=== PATIENT | female | born 1975 | race Caucasian/White ===

== ENCOUNTER 2024-02-28 23:49 | Inpatient (IN) | payer OTHER, SELFPAY ==
[2024-02-28 17:04] VITALS: BP 176/103
[2024-02-28 17:22] LABS: % Basophils 0.4 % (0-2); % Eosinophils 1.1 % (0-6); % Immature Granulocytes 0.4 % (0-0.5); % Lymphocytes 13.9 % (20.5-51.1); % Monocytes 8.4 % (1.7-9.3); % Neutrophils 75.8 % (42.2-75.2); Absolute Basophils 0.1 10^3/uL (0-0.2); Absolute Eosinophils 0.1 10^3/uL (0-0.7); Absolute Immature Granulocytes 0.1 10^3/uL (0-0.05); Absolute Lymphocytes 1.6 10^3/uL (1.2-3.4); Absolute Monocytes 0.9 10^3/uL (0.1-0.6); Absolute Neutrophils 8.5 10^3/uL (1.4-6.5); Hematocrit 30.7 % (37.0-47.0); Hemoglobin 9.1 g/dL (12.0-16.0); Mean Corp Hgb Conc. 29.6 g/dL (33.0-37.0); Mean Corpuscular Hgb 21.2 pg (27.0-31.0); Mean Corpuscular Volume 71.4 fL (81.0-99.0); Nucleated Red Blood Cells % 0 %; Platelet Count 316 10^3/uL (130-400); Red Cell Dist. Width 19.1 % (11.5-14.5); White Blood Cell Count 11.3 10^3/uL (4.8-10.8)
[2024-02-28 17:45] LABS: ALT (SGPT) 26 U/L (0-35); AST (SGOT) 30 U/L (14-36); Albumin 4.1 g/dl (3.5-5.0); Alkaline Phosphatase 100 U/L (38-126); Blood Urea Nitrogen 4 mg/dl (7-17); Carbon Dioxide 18 mmol/L (22-30); Chloride 103 mmol/L (98-107); Glucose 110 mg/dl (70-99); Lipase 40 U/L (23-300); Potassium 4.3 mmol/L (3.5-5.1); Sodium 136 mmol/L (135-145); Total Bilirubin 0.4 mg/dl (0.2-1.3); Total Protein 7.4 g/dl (6.3-8.2); eGFR > 60.00
--- NOTE | 2024-02-28 20:51 | ED.GENMED ---
History of Present Illness
General
Chief Complaint: Abdominal Pain
Source: patient
Exam Limitations: none
Time Seen by Provider: 02/28/24 20:00
Nursing documentation reviewed up to this point in time: agreed with
History of Present Illness
History of Present Illness:
pt is a 48 y/o F with no sig pmh
here with intermittent R lower abd pain x 1 week, but much worse the past 4 days with constipation; pt says she normally moves bowels regularly and has fairly soft stool but has had trouble the pat 4 days and barely mves her bowels; when she tries
to have BM or urinate, she gets a really bad pain in her R lower abdomen and across her lower abdomen
she has not had fever, chills, nausea, vomiting, dysuria, hematuria
pt tried doculax without relief really
she has not had any bowel altering surgery
pt has pain within her vaginal region like a contraction when she tries to move bowels or at the end of urination
Past History
Past History
ED Past Medical History: None
ED Past Surgical History: Cholecystectomy
Social History
Tobacco: Non-smoker
Alcohol: None
Drug: None
Personal:
Living: with family
Employment: Employed
Phy Exam
Physical Exam
Physical Exam:
GENERAL: Alert , in no apparent distress
EYE: pupils equal and reactive
NECK: Supple
ENT: o/p clr, mmm.
CARDIAC: Regular rate and rhythm .
LUNGS: Clear breath sounds bilaterally, no acute respiratory distress, no wheezes/rales/rhonchi
ABDOMEN: Soft, moderate to severe lower abd tnednerss, specifically suprapubic and RLQ; mild voluntary guarding,no cvat, normal bowel sounds
NEUROLOGICAL: Alert and oriented, no focal neuro deficits
SKIN: Warm and dry, skin intact.
MUSCULOSKELETAL: No edema, well perfused.
PSYCH: Normal and appropriate interaction.
Course
Orders/Labs/Results
Orders:
Orders
02/28/24 17:10
Electrocardiogram (*1) Urgent
Reason for Study: Abdominal Pain
EKG- Treatment ONCE
02/28/24 17:14
Complete Blood Count/With Diff Urgent
Comprehensive Metabolic Panel Urgent
HCG, Serum Qualitative Screen Urgent
Comment: ADDON
Lipase Urgent
02/28/24 20:48
Add On- LAB Urgent
Tests Added?: hcg serum qual
CT Abd/Pel (IV only)-DH only Urgent
Comment:
Reason For Exam: severe lower abd pain, constipation x 1 week
Ketorolac [Toradol] 30 mg IV NOW STA
02/28/24 21:30
Urinalysis Reflex To Culture Urgent
Date Specimen was Collected: 02/28/24
Time Specimen was Collected: 21:27
Urine Microscopic Reflex Cult Urgent
Urine Culture Urgent
CANDI Source: U
Specimen Description:
Date Specimen was Collected: 02/28/24
Time Specimen was Collected: 21:27
02/28/24 23:14
Piperacillin/Tazo 3.375 Gram [Zosyn] 3.375 gram in 50 ml IV NOW
02/28/24 23:35
Admit/Transfer Patient As Directed
Co-Sign Provider:
Level of Care: Inpatient admission
Assign to:: Medical/Surgical
Physician / Group: cathleen
Diagnosis: acute diverticulitis
Reason for Hospitalization: acute diverticulitis
Expected length of stay greater than two midnights?: Yes
ELOS- Estimated Length of Stay in days: 2
I certify the patient meets the requirements for IP care: Yes
Code Status As Directed
Resuscitation Status: Full Code
PRN Pain Medication Management As Directed
May give lesser potent ordered pain med per pt: Yes
preference::
Protocol:: Medication orders for pain may be administered in a
manner that supports deferring to patient preference
when the pt is:
- Requesting an ordered lesser potent pain medication.
Least to most potent pain medications are defined
as: acetaminophen < NSAID < tramadol < opioids
(morphine, oxycodone, hydromorphone).
- Requesting a lesser dose of the same medication IF
ORDERED.
- Requesting a less intrusive route of administration
if both routes are prescribed by the provider (PO <
IV).
Abnormal Lab Results
02/28/24 02/28/24
17:14 21:30
WBC 11.3 H 10^3/uL
(4.8-10.8)
Hgb 9.1 L g/dL
(12.0-16.0)
Hct 30.7 L %
(37.0-47.0)
MCV 71.4 L fL
(81.0-99.0)
MCH 21.2 L pg
(27.0-31.0)
MCHC 29.6 L g/dL
(33.0-37.0)
RDW 19.1 H %
(11.5-14.5)
Abs Immat Gran (auto) 0.1 H 10^3/uL
(0-0.05)
Absolute Neuts (auto) 8.5 H 10^3/uL
(1.4-6.5)
Absolute Monos (auto) 0.9 H 10^3/uL
(0.1-0.6)
Neutrophils % 75.8 H %
(42.2-75.2)
Lymphocytes % 13.9 L %
(20.5-51.1)
Carbon Dioxide 18 L mmol/L
(22-30)
BUN 4 L mg/dl
(7-17)
Glucose 110 H mg/dl
(70-99)
Urine Ketones 3+ A
(Negative)
Ur Occult Blood Reflex 2+ A
(Negative)
Leukocyte Esterase Rfl 2+ A
(Negative)
Urine WBC (Reflex) 26-30 A /HPF
(0-5)
Urine Bacteria (Reflex) Moderate A
(Negative)
02/28/24 17:14
02/28/24 17:14
Vital Signs
Initial and Last Documented VS:
Initial Vital Signs
Temp Pulse Resp BP Pulse Ox
97.8 F 116 20 176/103 100
02/28/24 17:04 02/28/24 17:04 02/28/24 17:04 02/28/24 17:04 02/28/24 17:04
Last Documented Vital Signs
Temp Pulse Resp BP Pulse Ox
99.0 F 89 16 124/78 98
02/28/24 23:14 02/28/24 23:14 02/28/24 23:14 02/28/24 23:14 02/28/24 23:14
MDM/Problems Addressed
Differential Diagnosis Includes:
divertc, cystitis, uti
MDM/Problems Addressed:
48 y/o F healthy
4-5 days RLQ/lower abd pain, no fever
no h/o previously of divertic but strong family history
moderate Lower abd tendneress, guarding
wbc 11.[address] shows diverticulitis with extesnive stranding and edema along sigmoid with small foci of extraluminal gas c/w microperf
stable vitals
zosyn,
colorectal dr. morales aware
*Critical Care Note
Total Time (30-74mins, 75-104mins- exclusive of procedures): Not Applicable
ED Attending Note
-
Portions of this chart may have been created with voice recognition software.� Occasional wrong word or��sound alike� substitutions may have occurred due to the inherent limitations of voice recognition software.
Discharge Plan
Departure
Patient Disposition: Admit
Date of Disposition: 02/28/24
Time of Disposition: 23:12
Admit to: Med/Surg
Presentation/result/management discussed w/ accepting MD/DO: Hospitalist
Condition: Fair
Covid-19: Not Applicable
Discharge Problem:
Perforated diverticulum
Interventions
Interventions:
*Risk Screen - Suicide Last Done: 02/28/24 17:04
*General Assessment Last Done: 02/28/24 17:04
*Neglect/Abuse Screening Last Done: 02/28/24 17:04
ED- Fall Risk Assessment Last Done: 02/28/24 23:18
*ED COVID-19 Vaccine History Last Done: 02/28/24 23:18
LG-Hbjqpe-Rvtkknnliq Assessment Last Done: 02/28/24 23:18
[2024-02-28] MEDS: TORADOL 30 MG IV (21:29)
[2024-02-28 21:30] LABS: HCG, Serum Qualitative Screen Negative
[2024-02-28 21:46] LABS: Urine Albumin Negative (Neg - Trace); Urine Bilirubin Negative (Negative); Urine Character Slightly Cloudy (Clear); Urine Color Yellow; Urine Glucose Negative (Negative); Urine Ketone 3+ (Negative); Urine Leukocyte 2+ (Negative); Urine Nitrite Negative (Negative); Urine Occult Blood 2+ (Negative); Urine Urobilinogen Negative (Neg - 1+)
[2024-02-28 21:47] VITALS: BMI 28.2
[2024-02-28 21:53] VITALS: BP 137/83
[2024-02-28 22:53] LABS: Urine Red Blood Cell 0-2 /HPF (0-2); Urine Squamous Cell >30 /LPF (Few); Urine White Cell 26-30 /HPF (0-5)
[2024-02-28 22:54] LABS: Urine Bacteria Moderate (Negative)
[2024-02-28 23:14] VITALS: BP 124/78
[2024-02-28] MEDS: ZOSYN 50 IV (23:22)
--- NOTE | 2024-02-28 23:37 | HPS.HSE ---
Family Physician
-
Family Physician: MARGY Perez
Chief Complaint
-
abdominal pain
History of Present Illness
48-year-old female without past medical history presenting with intermittent right lower quadrant abdominal pain for 1 week significantly worse over the past 4 days. Denies constipation or diarrhea. When she tries to have bowel movement or urinate
she has really bad pain in her right lower abdomen across her lower abdomen. She denies fevers or chills, nausea or vomiting, urinary symptoms. She tried Dulcolax without any relief today. She has pain in her vaginal region which she feels like a
contraction.
She smokes half a pack of cigarettes a day.
He drinks 3-4 drinks of alcohol per day
Medical History
Past Medical History
Past Medical History: Reports None
Past Surgical History: Reports Cholecystectomy
Social History
Tobacco: Smoker
Alcohol: Daily
Drug: None
Family History
Family History: Not pertinent
Allergies / Home Medications
Allergies reflects when Allergies were last updated in [facility].
Home Medications with original date entered in [facility]
Allergy/Medication List:
Allergies
Allergy/AdvReac Type Severity Reaction Status Date / Time
codeine Allergy Unknown Verified 02/28/24 17:09
latex Allergy Rash Verified 02/28/24 17:09
morphine Allergy Unknown Verified 02/28/24 17:09
Home Medications
magnesium hydroxide 600 mg chewable tablet (Dulcolax (magnesium hydroxide)) 1,800 mg PO DAILYPRN PRN constipation 02/28/24
Review of Systems
-
History Source: Patient
A 12 point ROS was completed and negative except as noted: Yes
Constitutional: Reports No Symptoms
EENT: Reports No Symptoms
Respiratory: Reports No Symptoms
Cardiac: Reports No Symptoms
Abdomen/GI: Reports See HPI
: Reports No Symptoms
Musculoskeletal: Reports No Symptoms
Skin: Reports No Symptoms
Neurological: Reports No Symptoms
Endocrine: Reports No Symptoms
Hematologic/Lymphatic: Reports No Symptoms
Psych: Reports No Symptoms
Physical Exam
Vital Signs
Vital Signs
Temp Pulse Resp BP Pulse Ox
99.0 F 89 16 124/78 98
02/28/24 23:14 02/28/24 23:14 02/28/24 23:14 02/28/24 23:14 02/28/24 23:14
Physical Exam
General: Well Developed, Well Nourished and No Apparent Distress
HEENT: NormoCephalic, Moist mucous membranes and Atraumatic
Respiratory: Clear
Cardiac: S1/S2 and Regular Rhythm; No Murmur or Rub
GI: Soft, Non Distended, Normal Bowel Sounds and Tender (LLQ and RLQ, guarding ); No Organomegaly
Rectal: Deferred by Provider
Musculoskeletal: No Clubbing, No Cyanosis and No Edema
Skin: No Rash
Neuro: Nonfocal/grossly intact
Laboratory Results
-
02/28/24 17:14
02/28/24 17:14
Laboratory Results
Total Bilirubin 0.4 mg/dl (0.2-1.3) 02/28/24 17:14
AST 30 U/L (14-36) 02/28/24 17:14
ALT 26 U/L (0-35) 02/28/24 17:14
Alkaline Phosphatase 100 U/L (38-126) 02/28/24 17:14
Lipase 40 U/L (23-300) 02/28/24 17:14
Data Reviewed
-
Lab Data: Labs Reviewed by me
Old Records: Reviewed
Impression/Plan
-
IMPRESSION:
PLAN:
# Sepsis (leukocytosis, tachycardia ) secondary to acute sigmoid diverticulitis with microperforation/developing phlegmon
-As per CT scan abdomen pelvis
-N.p.o.
-IV fluids
-Zosyn
-Colorectal surgery consulted
-Zofran, Toradol, Dilaudid
# Moderate alcohol use
-Monitor for withdrawal
# Active smoker
-Nicotine patch
History of cholecystectomy
Full code
DVT prophylaxis�SCDs
N.p.o.
--- NOTE | 2024-02-29 01:30 | PTCARENOTE ---
Pt aaox3 admitted to room 2135 from ED, able to make needs known. IVF's started and IV abx administered as per order. Pt oriented to room and call light, plan of care ongoing.
[2024-02-29] MEDS: PROTONIX 40 MG PO (01:53)
[2024-02-29] MEDS: TYLENOL 650 MG PO (01:54)
[2024-02-29] MEDS: NSS 1000 IV ×3 (01:54→22:47)
[2024-02-29] MEDS: ZOSYN 50 IV ×4 (01:54→23:47)
[2024-02-29 02:02] VITALS: BP 140/86
[2024-02-29 02:04] VITALS: BMI 27.7
[2024-02-29 07:18] LABS: % Basophils 0.6 % (0-2); % Eosinophils 2.5 % (0-6); % Immature Granulocytes 0.6 % (0-0.5); % Lymphocytes 16.1 % (20.5-51.1); % Monocytes 8.8 % (1.7-9.3); % Neutrophils 71.4 % (42.2-75.2); Absolute Eosinophils 0.2 10^3/uL (0-0.7); Absolute Lymphocytes 1.2 10^3/uL (1.2-3.4); Absolute Monocytes 0.6 10^3/uL (0.1-0.6); Absolute Neutrophils 5.1 10^3/uL (1.4-6.5); Hematocrit 26.6 % (37.0-47.0); Mean Corp Hgb Conc. 30.1 g/dL (33.0-37.0); Mean Corpuscular Volume 73.1 fL (81.0-99.0); Mean Platelet Volume 9.1 fL (7.4-10.4); Nucleated Red Blood Cells % 0 %; Platelet Count 299 10^3/uL (130-400); Red Blood Cell Count 3.64 10^6/uL (4.20-5.40); White Blood Cell Count 7.2 10^3/uL (4.8-10.8)
[2024-02-29 07:37] LABS: ALT (SGPT) 22 U/L (0-35); AST (SGOT) 21 U/L (14-36); Albumin 3.3 g/dl (3.5-5.0); Alkaline Phosphatase 77 U/L (38-126); Blood Urea Nitrogen 5 mg/dl (7-17); Calcium 8.2 mg/dl (8.4-10.2); Carbon Dioxide 21 mmol/L (22-30); Chloride 105 mmol/L (98-107); Estimated Creatinine Clearance 93 ml/min; Glucose 86 mg/dl (70-99); Potassium 3.8 mmol/L (3.5-5.1); Sodium 136 mmol/L (135-145); Total Bilirubin 0.4 mg/dl (0.2-1.3); Total Protein 6.1 g/dl (6.3-8.2); eGFR > 60.00
[2024-02-29 07:41] VITALS: BP 130/80
[2024-02-29] MEDS: DILAUDID 0.5 MG IV ×3 (08:07→20:47)
--- NOTE | 2024-02-29 08:31 | W.PN.HOSP.TC ---
Today's Communication/Plan
-
IV antibiotics.
Assessment / Plan
Assessment / Plan
Physical exam:
General: Acutely ill
HEENT: Normocephalic, Atraumatic and Moist Mucous Membranes
Respiratory: Clear to Auscultation; Negative Wheezes, Rales or Rhonchi
Cardiac: Regular Rhythm and S1/S2
GI: Soft, tender and Nondistended
Musculoskeletal: No Clubbing, No Cyanosis and No Edema
Neuro: Awake, Alert and Oriented
Psych: Calm
A/P:
# Sepsis (leukocytosis, tachycardia ) secondary to acute sigmoid diverticulitis with microperforation/developing phlegmon
Improving
WBC trending down 11.3--> 7.2
Colorectal surgery consult appreciated
Continue IV fluids
Start clear liquid diet today
Discussed with at bedside
# Moderate alcohol use
No evidence of withdrawal
Monitor for withdrawal
# Active smoker
-Nicotine patch
History of cholecystectomy
DVT prophylaxis�SCDs
CODE STATUS
Full code
Anticipated Discharge: > 48 hours
Subjective/Interval History
-
Date of Service: February 29, 2024
Patient has less abdominal pain today, no nausea or vomiting. Afebrile
Objective Data
-
Labs:
Laboratory Results
02/29/24
06:36
WBC 7.2
Hgb 8.0 L
Hct 26.6 L
Plt Count 299
Sodium 136
Potassium 3.8
Chloride 105
Carbon Dioxide 21 L
BUN 5 L
Creatinine 0.7
Glucose 86
Calcium 8.2 L
Total Bilirubin 0.4
AST 21
ALT 22
Alkaline Phosphatase 77
Vital Signs:
Vital Signs
Temp Pulse Resp BP Pulse Ox
98.9 F 83 17 130/80 98
02/29/24 07:41 02/29/24 07:41 02/29/24 07:41 02/29/24 07:41 02/29/24 07:41
I&O
02/28/24 02/29/24 03/01/24
06:59 06:59 06:59
Intake Total 240 / 240
Balance 240 / 240
[2024-02-29] MEDS: NSS (PRESERVATIVE FREE) 10 ML IV (10:30)
[2024-02-29] MEDS: PROTONIX IV 40 MG IV (10:30)
[2024-02-29] MEDS: TORADOL 10 MG IV ×3 (10:40→23:51)
--- NOTE | 2024-02-29 12:53 | CM ---
Reviewed the chart notes and spoke with the patient and her spouse at the bedside. The patient resides with her spouse in a two story home with a basement. There are three steps to enter. The patient reports no DME/VN/SNF in the past. The
patient confirmed her pharmacy of choice is the [facility]. CM continues to be available to patient/family and is monitoring medical plan for needs at discharge.
Plan: Discharge to home when medically stable. No anticipated needs identified at this time.
--- NOTE | 2024-02-29 13:28 | CON.CRS ---
Consultation
-
Date/Time Consultation Requested: 02/29/2024, 01:17
Date/Time Consultation Performed: 02/29/2024, 11:30
Requesting Provider: Willian Blue MD
Performing Provider: Jostin Ramsey MD
Reason for Consultation: diverticulitis
Medical History
-
Chief Complaint: abdominal pain
History of Present Illness:
48-year-old female with a history of a cholecystectomy presents to [facility] complaining of right lower abdominal pain for the past 5 days. She states that it worsened last night which prompted her to go to the ER. She at first thought
this was menstrual pain as it would come and go every 45 minutes to 1 hour. She states she has no fevers or chills. She is having liquid diarrhea. She has not noticed any blood in her stools. On arrival to the ER her white blood cell count was
11.3. Today it is 7.2. Her vital signs have remained normal and she has been afebrile. CT of the abdomen and pelvis showed extensive stranding and edema along the sigmoid colon with a small foci of extraluminal gas consistent with
microperforation and developing phlegmon's collection. Constellation of findings are secondary to perforated sigmoid diverticulitis. She was started on IV antibiotics in the ER. She has a strong family history of diverticulitis as her mother and
grandmother and brother all had diverticulitis in the past. She has never had a colonoscopy.
Past Medical History
Past Medical History: None
Past Surgical History: Cholecystectomy
Social History
Tobacco: Smoker
Alcohol: None
Drug: None
Family History
Family History: Other (diverticulitis)
Allergies / Home Medications
Allergy/AdvReac Type Severity Reaction Status Date / Time
codeine Allergy Unknown Verified 02/28/24 17:09
latex Allergy Rash Verified 02/28/24 17:09
morphine Allergy Unknown Verified 02/28/24 17:09
�Medication �Instructions �Recorded �Confirmed �Type
magnesium hydroxide 600 mg 1,800 mg PO DAILYPRN PRN 02/28/24 02/28/24 History
chewable tablet (Dulcolax constipation
(magnesium hydroxide))
Review of Systems
-
History Source: Patient
Abdomen/GI: Abdominal Pain and Diarrhea
A 10 point review of systems was completed, and was negative except as per HPI.
Physical Exam
Vital Signs
Temp 98.9 F 02/29/24 07:41
Pulse 83 02/29/24 07:41
Resp Rate 17 02/29/24 07:41
Blood pressure 130/80 02/29/24 07:41
SaO2 98 02/29/24 10:26
02/28/24 02/29/24 03/01/24
06:59 06:59 06:59
Actual Weight 70.902 kg
Body Mass Index (BMI) 27.7
Lab Results / Allergies
02/29/24 06:36
02/29/24 06:36
WBC 7.2 10^3/uL (4.8-10.8) 02/29/24 06:36
Hgb 8.0 g/dL (12.0-16.0) L 02/29/24 06:36
Hct 26.6 % (37.0-47.0) L 02/29/24 06:36
Plt Count 299 10^3/uL (130-400) 02/29/24 06:36
Abs Immat Gran (auto) 0.0 10^3/uL (0-0.05) 02/29/24 06:36
Neutrophils % 71.4 % (42.2-75.2) 02/29/24 06:36
Allergy/AdvReac Type Severity Reaction Status Date / Time
codeine Allergy Unknown Verified 02/28/24 17:09
latex Allergy Rash Verified 02/28/24 17:09
morphine Allergy Unknown Verified 02/28/24 17:09
Physical Exam
General: Well Developed, Well Nourished and No Apparent Distress
GI: Soft and Tender (RLQ/suprapubic- mild to moderate)
Skin: Warm and Dry
Neuro: AO x 3
Data Reviewed
-
CT Scan: Image Personally Visualized and interpreted, Report Reviewed by me and Discussed with Patient
Labs: Labs Reviewed by me, Discussed with Physician and Discussed with Patient
Old Records: Reviewed
Assessment / Plan
-
Assessment: 48-year-old female first attack diverticulitis
Plan:
-No plans for surgery at this time. If she worsens she will require a colectomy with colostomy creation.
-Okay to start clear liquid diet.
-Trend labs.
-Continue IV antibiotics.
-Will need eventual colonoscopy as an outpatient once her episode has resolved.
[2024-02-29 15:34] VITALS: BP 140/82
[2024-02-29 23:01] VITALS: BP 133/81
[2024-03-01] MEDS: ZOSYN 50 IV ×3 (05:37→18:01)
[2024-03-01] MEDS: TORADOL 10 MG IV ×3 (05:57→19:14)
[2024-03-01 07:33] VITALS: BP 133/75
[2024-03-01 08:20] LABS: % Basophils 0.5 % (0-2); % Eosinophils 1.4 % (0-6); % Immature Granulocytes 0.5 % (0-0.5); % Lymphocytes 14.6 % (20.5-51.1); Absolute Eosinophils 0.1 10^3/uL (0-0.7); Absolute Lymphocytes 1.3 10^3/uL (1.2-3.4); Absolute Monocytes 0.9 10^3/uL (0.1-0.6); Absolute Neutrophils 6.2 10^3/uL (1.4-6.5); Hematocrit 25.4 % (37.0-47.0); Hemoglobin 7.4 g/dL (12.0-16.0); Mean Corp Hgb Conc. 29.1 g/dL (33.0-37.0); Mean Corpuscular Hgb 20.7 pg (27.0-31.0); Mean Corpuscular Volume 71.1 fL (81.0-99.0); Nucleated Red Blood Cells % 0 %; Platelet Count 288 10^3/uL (130-400); Red Blood Cell Count 3.57 10^6/uL (4.20-5.40); Red Cell Dist. Width 19.1 % (11.5-14.5); White Blood Cell Count 8.5 10^3/uL (4.8-10.8)
[2024-03-01 08:50] LABS: Blood Urea Nitrogen 4 mg/dl (7-17); Carbon Dioxide 22 mmol/L (22-30); Chloride 108 mmol/L (98-107); Estimated Creatinine Clearance 93 ml/min; Glucose 84 mg/dl (70-99); Potassium 4.3 mmol/L (3.5-5.1); Sodium 139 mmol/L (135-145); eGFR > 60.00
--- NOTE | 2024-03-01 08:54 | W.PN.HOSP.TC ---
Today's Communication/Plan
-
IV antibiotics and IV fluids. Anemia workup.
Assessment / Plan
Assessment / Plan
Physical exam:
General: Acutely ill
HEENT: Normocephalic, Atraumatic and Moist Mucous Membranes
Respiratory: Clear to Auscultation; Negative Wheezes, Rales or Rhonchi
Cardiac: Regular Rhythm and S1/S2
GI: Soft, tender and Nondistended
Musculoskeletal: No Clubbing, No Cyanosis and No Edema
Neuro: Awake, Alert and Oriented
Psych: Calm
A/P:
# Sepsis (leukocytosis, tachycardia ) secondary to acute sigmoid diverticulitis with microperforation/developing phlegmon
Improving
WBC trending down 11.3--> 7.2--> 8.5
Colorectal surgery consult appreciated
Continue IV fluids but decrease rate
Continue clear liquid diet today per colorectal recommendation
Discussed with at bedside
#Anemia
Dilutional component
Hemoglobin 7.4 today
Hemoglobin 9.1 upon admission
Check anemia workup in a.m.
#Abnormal UA
Mixed jacob the culture
Repeating urinalysis
# Moderate alcohol use
No evidence of withdrawal
Monitor for withdrawal
# Active smoker
-Nicotine patch
History of cholecystectomy
DVT prophylaxis�SCDs
CODE STATUS
Full code
Anticipated Discharge: > 48 hours
Subjective/Interval History
-
Date of Service: March 01, 2024
Patient with some tenderness in the abdomen. No nausea or vomiting.
Objective Data
-
Labs:
Laboratory Results
03/01/24
07:57
WBC 8.5
Hgb 7.4 L
Hct 25.4 L
Plt Count 288
Sodium 139
Potassium 4.3
Chloride 108 H
Carbon Dioxide 22
BUN 4 L
Creatinine 0.7
Glucose 84
Calcium 8.0 L
Vital Signs:
Vital Signs
Temp Pulse Resp BP Pulse Ox
98.5 F 90 18 133/75 98
03/01/24 07:33 03/01/24 07:33 03/01/24 07:33 03/01/24 07:33 03/01/24 07:33
I&O
02/29/24 03/01/24 03/02/24
06:59 06:59 06:59
Intake Total 1540 / 1540 4210 / 4210
Balance 1540 / 1540 4210 / 4210
[2024-03-01] MEDS: PROTONIX IV 40 MG IV (09:11)
[2024-03-01] MEDS: NSS (PRESERVATIVE FREE) 10 ML IV (09:11)
[2024-03-01] MEDS: NSS 1000 IV (09:12)
--- NOTE | 2024-03-01 09:31 | W.PN.CRS1 ---
Today's Communication / Plan
-
Remain on clears
Urine culture
Assessment/Plan
-
Assessment: 48-year-old female first attack diverticulitis
Plan:
-No plans for surgery at this time. If she worsens she will require a colectomy with colostomy creation.
-Remain on clear liquid diet given her pain
-Trend labs.
-Continue IV antibiotics.
-Will need eventual colonoscopy as an outpatient once her episode has resolved.
-Urine culture was contaminated and given that she is symptomatic, will reorder a urine culture.
Subjective Data
Subjective Data
Date of Service: March 01, 2024
Patient states she is still in a lot of pain. The pain is mostly on the right side. However it is much improved since when she first came in. She has not had any bowel movements but is having flatus. She has no nausea or vomiting. She says she
is very hungry. Her main complaint at this time is severe spasming in the right lower quadrant anytime after she urinates.
Objective Data
-
Vital Signs
Temp Pulse Resp BP Pulse Ox
98.5 F 90 18 133/75 98
03/01/24 07:33 03/01/24 07:33 03/01/24 07:33 03/01/24 07:33 03/01/24 07:33
Intake & Output
02/29/24 03/01/24 03/02/24
06:59 06:59 06:59
Intake Total 1540 / 1540 4210 / 4210
Balance 1540 / 1540 4210 / 4210
Intake:
Oral fluids 240 / 240 1560 / 1560
IV fluids (Total) 1200 / 1200 2450 / 2450
IV piggybacks 100 / 100 200 / 200
Other:
Number of approximated MODERATE 3
amounts of urine
Lab Results
03/01/24 07:57
03/01/24 07:57
Physical Exam
-
General: No Acute Distress and AOx3
Abdomen: Soft, Non Distended and Tender (Suprapubic and right lower quadrant, mild to moderate, unchanged)
Skin: Warm and Dry
--- NOTE | 2024-03-01 15:20 | CM ---
Reviewed the chart notes. Patient remains on clear liquid diet. CM continues to be available to patient/family and is monitoring medical plan for needs at discharge.
Plan: Discharge to home when medically stable. No anticipated needs.
[2024-03-01 15:27] VITALS: BP 132/69
[2024-03-01 23:31] VITALS: BP 133/76
[2024-03-02] MEDS: NSS 1000 IV ×2 (01:06→17:02)
[2024-03-02] MEDS: DILAUDID 0.5 MG IV (01:07)
[2024-03-02] MEDS: ZOSYN 50 IV ×5 (01:07→23:35)
[2024-03-02 07:20] LABS: % Basophils 0.4 % (0-2); % Eosinophils 2.1 % (0-6); % Immature Granulocytes 0.4 % (0-0.5); % Lymphocytes 23.7 % (20.5-51.1); % Monocytes 10.7 % (1.7-9.3); % Neutrophils 62.7 % (42.2-75.2); Absolute Eosinophils 0.2 10^3/uL (0-0.7); Absolute Lymphocytes 1.7 10^3/uL (1.2-3.4); Absolute Monocytes 0.8 10^3/uL (0.1-0.6); Absolute Neutrophils 4.5 10^3/uL (1.4-6.5); Mean Corp Hgb Conc. 29.2 g/dL (33.0-37.0); Mean Corpuscular Hgb 21.7 pg (27.0-31.0); Mean Corpuscular Volume 74.5 fL (81.0-99.0); Mean Platelet Volume 9.7 fL (7.4-10.4); Nucleated Red Blood Cells % 0 %; Platelet Count 304 10^3/uL (130-400); Red Blood Cell Count 3.22 10^6/uL (4.20-5.40); Red Cell Dist. Width 19.2 % (11.5-14.5); White Blood Cell Count 7.2 10^3/uL (4.8-10.8)
[2024-03-02 07:34] LABS: Blood Urea Nitrogen < 2 mg/dl (7-17); Calcium 7.8 mg/dl (8.4-10.2); Carbon Dioxide 23 mmol/L (22-30); Chloride 108 mmol/L (98-107); Estimated Creatinine Clearance 93 ml/min; Glucose 87 mg/dl (70-99); Potassium 3.7 mmol/L (3.5-5.1); Sodium 139 mmol/L (135-145); eGFR > 60.00
[2024-03-02 07:36] LABS: Iron 20 ug/dl (37-170)
[2024-03-02 07:43] LABS: Percent Saturation 5 % (20-50); Total Iron Binding Capacity 340 ug/dl (265-497)
[2024-03-02 07:51] VITALS: BP 133/72
[2024-03-02] MEDS: NSS (PRESERVATIVE FREE) 10 ML IV (08:07)
[2024-03-02] MEDS: PROTONIX IV 40 MG IV (08:07)
[2024-03-02 08:13] LABS: Ferritin 9.2 ng/ml (6.24-137)
[2024-03-02 08:38] LABS: Folate 13.5 ng/ml (2.76-20); Vitamin B12 620 pg/ml (239-931)
--- NOTE | 2024-03-02 08:47 | W.PN.HOSP.TC ---
Today's Communication/Plan
-
Continue IV antibiotics.
Assessment / Plan
Assessment / Plan
Physical exam:
General: Acutely ill
HEENT: Normocephalic, Atraumatic and Moist Mucous Membranes
Respiratory: Clear to Auscultation; Negative Wheezes, Rales or Rhonchi
Cardiac: Regular Rhythm and S1/S2
GI: Soft, tender and Nondistended
Musculoskeletal: No Clubbing, No Cyanosis and No Edema
Neuro: Awake, Alert and Oriented
Psych: Calm
A/P:
# Sepsis (leukocytosis, tachycardia ) secondary to acute sigmoid diverticulitis with microperforation/developing phlegmon
Improving
WBC trending down 11.3--> 7.2
Colorectal surgery consult appreciated
Stop IV fluids
Low residue diet today per colorectal recommendation
Discussed with at bedside
#Anemia
Dilutional component and MIN
Hemoglobin 7.0 today
Hemoglobin 9.1 upon admission
Iron deficiency anemia apparent on workup
Start IV iron infusion
#Abnormal UA
Mixed jacob on urine culture
Repeat urine culture negative
# Moderate alcohol use
No evidence of withdrawal
Monitor for withdrawal
# Active smoker
-Nicotine patch
History of cholecystectomy
DVT prophylaxis�SCDs
CODE STATUS
Full code
Anticipated Discharge: Within 24 hours
Subjective/Interval History
-
Date of Service: March 02, 2024
Patient's abdominal pain is better, no nausea or vomiting.
Objective Data
-
Labs:
Laboratory Results
03/02/24
04:51
WBC 7.2
Hgb 7.0 L
Hct 24.0 L
Plt Count 304
Sodium 139
Potassium 3.7
Chloride 108 H
Carbon Dioxide 23
BUN < 2 L
Creatinine 0.7
Glucose 87
Calcium 7.8 L
Vital Signs:
Vital Signs
Temp Pulse Resp BP Pulse Ox
98.5 F 80 16 133/72 96
03/02/24 07:51 03/02/24 07:51 03/02/24 07:51 03/02/24 07:51 03/02/24 07:51
I&O
03/01/24 03/02/24 03/03/24
06:59 06:59 06:59
Intake Total 4210 / 4210 1515 / 1515
Balance 4210 / 4210 1515 / 1515
[2024-03-02] MEDS: TYLENOL 1000 MG PO ×3 (11:53→23:34)
[2024-03-02] MEDS: FERRLECIT 110 MG IV (14:49)
--- NOTE | 2024-03-02 15:04 | CM ---
Reviewed the chart notes. Patient's diet advanced to low residual. CM continues to be available to patient/family and is monitoring medical plan for needs at discharge.
Plan: Discharge to home when medically stable. No needs anticipated.
[2024-03-02 15:45] VITALS: BP 127/78
[2024-03-02] MEDS: NSS IV (16:14)
[2024-03-02 23:29] VITALS: BP 137/73
[2024-03-02] MEDS: MELATONIN 5 MG PO (23:52)
[2024-03-03] MEDS: TYLENOL 1000 MG PO (05:39)
[2024-03-03] MEDS: ZOSYN 50 IV (05:39)
[2024-03-03 08:02] VITALS: BP 153/85
[2024-03-03] MEDS: NSS 1000 IV (08:27)
[2024-03-03] MEDS: NSS (PRESERVATIVE FREE) 10 ML IV (08:28)
[2024-03-03] MEDS: PROTONIX IV 40 MG IV (08:28)
--- NOTE | 2024-03-03 08:48 | W.PN.HOSP.TC ---
Today's Communication/Plan
-
Discharge planning today
Assessment / Plan
Assessment / Plan
Physical exam:
General: Well Developed, Well Nourished and No Apparent Distress
HEENT: Normocephalic, Atraumatic and Moist Mucous Membranes
Respiratory: Clear to Auscultation; Negative Wheezes, Rales or Rhonchi
Cardiac: Regular Rhythm and S1/S2
GI: Soft, Nontender and Nondistended
Musculoskeletal: No Clubbing, No Cyanosis and No Edema
Neuro: Awake, Alert and Oriented
Psych: Calm
A/P:
# Sepsis (leukocytosis, tachycardia ) secondary to acute sigmoid diverticulitis with microperforation/developing phlegmon
Improving
WBC trending down 11.3--> 7.2
Colorectal surgery consult appreciated
Stop IV fluids
Low residue diet today per colorectal recommendation
Discussed with at bedside
Colorectal surgery cleared her for discharge today
#Anemia
Dilutional component and MIN
Hemoglobin 7.0 yesterday
Hemoglobin 9.1 upon admission
Iron deficiency anemia apparent on workup
Start IV iron infusion
#Abnormal UA
Mixed jacob on urine culture
Repeat urine culture negative
# Moderate alcohol use
No evidence of withdrawal
Monitor for withdrawal
# Active smoker
-Nicotine patch
History of cholecystectomy
DVT prophylaxis�SCDs
CODE STATUS
Full code
Anticipated Discharge: Today
Subjective/Interval History
-
Date of Service: March 03, 2024
No abdominal pain nausea vomiting.
Objective Data
-
Vital Signs:
Vital Signs
Temp Pulse Resp BP Pulse Ox
98.2 F 78 16 153/85 97
03/03/24 08:02 03/03/24 08:02 03/03/24 08:02 03/03/24 08:02 03/03/24 08:02
I&O
03/02/24 03/03/24 03/04/24
06:59 06:59 06:59
Intake Total 1515 / 1515 2458 / 2458 170 / 170
Balance 1515 / 1515 2458 / 2458 170 / 170
--- NOTE | 2024-03-03 10:43 | W.PN.CRS1 ---
Today's Communication / Plan
-
Okay for discharge from our perspective
Will need eventual colonoscopy as an outpatient
Follow-up with Dr. Ramsey in the office in a few weeks
Assessment/Plan
-
Assessment: 48-year-old female first attack diverticulitis
Plan:
-No plans for surgery at this time.
-Advance diet advance to low residue yesterday
-Trend labs.
-Continue IV antibiotics.
-Will need eventual colonoscopy as an outpatient once her episode has resolved.
-Anemia management per primary team. Hemoglobin yesterday 7.0. No labs today.
-Okay for discharge per primary team. Will need follow-up in our office in a few weeks with Dr. Ramsey to discuss colonoscopy scheduling.
Subjective Data
Subjective Data
Date of Service: March 03, 2024
Patient states she feels much improved. Her pain is still present but is much less so than when she came in. She has no nausea or vomiting. She is having bowel movements.
Objective Data
-
Vital Signs
Temp Pulse Resp BP Pulse Ox
98.2 F 78 16 153/85 97
03/03/24 08:02 03/03/24 08:02 03/03/24 08:02 03/03/24 08:02 03/03/24 08:02
Intake & Output
03/02/24 03/03/24 03/04/24
06:59 06:59 06:59
Intake Total 1515 / 1515 2458 / 2458 170 / 170
Balance 1515 / 1515 2458 / 2458 170 / 170
Intake:
Oral fluids 480 / 480 200 / 200
IV fluids (Total) 935 / 935 1997 / 1997 170 / 170
IV piggybacks 100 / 100 260 / 260
Other:
Number of approximated MODERATE 2 5
amounts of urine
Number of approximated LARGE 1 1
amounts of urine
Lab Results
03/02/24 04:51
03/02/24 04:51
Physical Exam
-
General: No Acute Distress and AOx3
Abdomen: Soft, Non Distended and Tender (Mild suprapubic and right lower quadrant)
Skin: Warm and Dry
--- NOTE | 2024-03-03 11:07 | W.DCSUMMARY ---
Discharge Summary
Discharge Data
Date of Admission: 02/28/24
Date of Discharge: 03/03/24
-
Pending Results: No
Hospital Course
Patient 48 years old female with no significant past medical history came into the hospital with abdominal pain and found to have diverticulitis with microperforation by CT scan of the abdomen and pelvis. She was kept n.p.o. and started on
broad-spectrum IV antibiotics. Colorectal surgery was consulted. Her WBC count trending down from 11.3 down to 7.2. She did well with diet and tolerated well. Her hemoglobin dropped and she was given IV iron infusion patient anemia workup she
had iron deficiency. Otherwise, patient afebrile and hemodynamically stable. Colorectal surgery cleared her for discharge today. She will need eventual colonoscopy as outpatient. No other events were noticed. She will be discharged in stable
condition today.
Discharge duration: 35 minutes
Discharge Plan
-
Patient Disposition: Home (Routine Discharge)
Discharge Diagnosis/Procedures: Sepsis due to diverticulitis with microperforation. Iron deficiency anemia. Gastroesophageal reflux disease.
Condition: Good
Diet: Low Fiber
Activity: As tolerated
Blood Work: Please PCP to order CBC, BMP within 1 week
Referrals:
Jostin Ramsey MD [Active] - in three to four weeks
Marie Alex CRNP [Family Provider] - in less than 1 week
Additional Discharge Medication Instructions: Please follow-up with Dr. Ramsey. You will need an eventual colonoscopy.
Prescriptions:
New
amoxicillin-pot clavulanate 875-125 mg Tablet
1 tab PO Q12 10 Days Qty: 20 0RF
ferrous sulfate 325 mg (65 mg iron) tablet
325 mg PO DAILY Qty: 30 0RF
famotidine [Pepcid] 20 mg tablet
20 mg PO DAILY Qty: 30 0RF
Continued
Dulcolax (magnesium hydroxide) 600 mg Tablet,Chewable
1,800 mg PO DAILYPRN PRN (Reason: constipation)
Discharge Orders:
Discharge Patient (As Directed); Ordered 03/03/24
Ordered By: Juventino Bowen
Discharge Date and Time
Discharge Date/Time: 03/03/24 12:41
Print Language: [place]
--- NOTE | 2024-03-03 11:22 | CM ---
CM following re: discharge planning.
Reviewed pt's chart, met with pt.
Discharge order noted - pt is aware and she stated her is coming to transport home.
Pt is independent with functional ability and no after care VN services indicated.
D/C plan: home no needs. to transport.
[2024-03-03] MEDS: AUGMENTIN 875 MG/125 MG 1 TABLET PO (11:58)
[2024-03-03] MEDS: TYLENOL PO (11:59)
== END 2024-03-03 12:41 | disposition home or self-care (01) | DRG 872 ==
LOC: 2 NORTH 23:49
PROVIDERS: Physician Assistant; Registered Nurse; ADMITTING PHYSICIAN Hospitalist; ATTENDING PHYSICIAN Hospitalist; CONSULT PHYSICIAN Surgery; EMERGENCY PHYSICIAN Emergency Medicine; FAMILY PHYSICIAN Nurse Practitioner Family
DX: A41.9 Sepsis, unspecified organism (principal); K57.20 Diverticulitis of large intestine with perforation and abscess without bleeding; F17.210 Nicotine dependence, cigarettes, uncomplicated; K21.9 Gastro-esophageal reflux disease without esophagitis; D50.9 Iron deficiency anemia, unspecified
CPT/HCPCS: 74177; 80048; 80053; 81003; 81015; 82607; 82728; 82746; 83540; 83550; 83690; 84703; 85025; 87086; 93005; 96365; 96375; 99285; 99406; J2916; Q9967

== ENCOUNTER → 2024-03-08 15:47 | Outpatient (REF) | payer OTHER, SELFPAY ==
[2024-03-08 16:49] LABS: ALT (SGPT) 26 U/L (0-35); AST (SGOT) 27 U/L (14-36); Albumin 3.7 g/dl (3.5-5.0); Alkaline Phosphatase 71 U/L (38-126); Blood Urea Nitrogen 5 mg/dl (7-17); Calcium 9.2 mg/dl (8.4-10.2); Carbon Dioxide 27 mmol/L (22-30); Chloride 105 mmol/L (98-107); Glucose 96 mg/dl (70-99); Potassium 3.6 mmol/L (3.5-5.1); Sodium 141 mmol/L (135-145); Total Bilirubin 0.2 mg/dl (0.2-1.3); Total Protein 6.6 g/dl (6.3-8.2); eGFR > 60.00
[2024-03-08 17:20] LABS: TSH Reflex To Free T4 0.27 uIU/ml (0.47-4.68)
[2024-03-08 17:41] LABS: % Basophils 1.1 % (0-2); % Eosinophils 2.1 % (0-6); % Immature Granulocytes 0.4 % (0-0.5); % Lymphocytes 26.9 % (20.5-51.1); % Neutrophils 59.5 % (42.2-75.2); Absolute Basophils 0.1 10^3/uL (0-0.2); Absolute Eosinophils 0.1 10^3/uL (0-0.7); Absolute Lymphocytes 1.3 10^3/uL (1.2-3.4); Absolute Monocytes 0.5 10^3/uL (0.1-0.6); Absolute Neutrophils 2.8 10^3/uL (1.4-6.5); Hemoglobin 8.9 g/dL (12.0-16.0); Mean Corp Hgb Conc. 28.7 g/dL (33.0-37.0); Mean Corpuscular Hgb 21.4 pg (27.0-31.0); Mean Corpuscular Volume 74.7 fL (81.0-99.0); Mean Platelet Volume 8.9 fL (7.4-10.4); Nucleated Red Blood Cells % 0 %; Platelet Count 567 10^3/uL (130-400); Red Blood Cell Count 4.15 10^6/uL (4.20-5.40); Red Cell Dist. Width 21.4 % (11.5-14.5); White Blood Cell Count 4.7 10^3/uL (4.8-10.8)
[2024-03-08 17:49] LABS: Anisocytosis 2+; Free T4 0.98 ng/dl (0.78-2.19); Hypochromasia 1+; Macrocytosis 3+; Normal RBC Morphology No; Stomatocytes Occasional; Target Cells Occasional
== END ==
LOC: REG 15:47
PROVIDERS: ATTENDING PHYSICIAN Student in an Organized Health Care Education/Training Program; REFERRING PHYSICIAN Surgery
DX: D50.8 Other iron deficiency anemias (principal)
CPT/HCPCS: 36415; 80053; 84439; 84443; 85025

== ENCOUNTER → 2024-04-21 16:52 | Outpatient (REF) | payer OTHER, SELFPAY | LOC: RAD 16:52 | PROVIDERS: ATTENDING PHYSICIAN Surgery; FAMILY PHYSICIAN Family Medicine | DX: K57.32 Diverticulitis of large intestine without perforation or abscess without bleeding (principal) | CPT/HCPCS: 74177; Q9967 ==

== ENCOUNTER 2024-05-23 06:23 | Day surgery (SDC) | payer OTHER, SELFPAY | END 2024-05-23 12:57 | disposition home or self-care (01) | LOC: GI 06:23 | PROVIDERS: ATTENDING PHYSICIAN Surgery; FAMILY PHYSICIAN Student in an Organized Health Care Education/Training Program | DX: K57.32 Diverticulitis of large intestine without perforation or abscess without bleeding (principal); K64.8 Other hemorrhoids; K64.4 Residual hemorrhoidal skin tags | CPT/HCPCS: 45378 ==

== ENCOUNTER → 2024-07-25 17:21 | Outpatient (REF) | payer BC, SELFPAY | LOC: WDC 17:21 | PROVIDERS: ATTENDING PHYSICIAN Student in an Organized Health Care Education/Training Program | DX: Z12.31 Encounter for screening mammogram for malignant neoplasm of breast (principal) | CPT/HCPCS: 77063; 77067 ==